=== PATIENT | female | born 1975 | race American Indian/Alaskan Native ===

== ENCOUNTER 2017-12-01 15:03 | Outpatient (CLI) | payer OTHER ==
[2017-12-01 15:56] LABS: Hematocrit 41.2 % (30.3-42.9); Hemoglobin 14.1 gm/dl (10.1-14.3); Mean Corpuscular HGB Conc 34 % (30-34); Mean Corpuscular Hemoglobin 30 pg (28-32); Mean Corpuscular Volume 87 fl (79-97); Platelet Count 253 K/mm3 (140-440); Red Blood Count 4.75 M/mm3 (3.65-5.03); Red Cell Distribution Width 13.9 % (13.2-15.2)
[2017-12-01 16:16] LABS: Alanine Aminotransferase 32 units/L (7-56); Albumin 4.4 g/dL (3.9-5); BUN/Creatinine Ratio 16; Blood Urea Nitrogen 8 mg/dL (7-17); Calcium 9.6 mg/dL (8.4-10.2); Hemolysis Index 25
== END 2017-12-01 15:04 | disposition home or self-care (01) ==
LOC: LAB 15:03
PROVIDERS: ATTEND Specialist
DX: G50.0 Trigeminal neuralgia (principal)
CPT/HCPCS: 36415; 80053; 80156; 85027

== ENCOUNTER 2022-04-22 09:16 | Emergency (ER) | payer SELFPAY | END 2022-04-22 09:30 | disposition left against medical advice (07) | LOC: ED 09:16 | DX: M54.50 Low back pain, unspecified (principal); Z53.21 Procedure and treatment not carried out due to patient leaving prior to being seen by health care provider ==